=== PATIENT | female | born 1960 | race Caucasian/White ===

== ENCOUNTER 2017-04-13 18:10 | Inpatient (IN) | payer OTHER ==
[~2017-04-13] VITALS: Ht 167.6 cm; Wt 68.0 kg
[2017-04-13] MEDS ORDERED: CEPH-570 PO (18:54)
[2017-04-13] MEDS ORDERED: LISI-607 PO (18:54)
[2017-04-13] MEDS ORDERED: SULF1TAB48 PO (18:54)
--- NOTE | 2017-04-13 20:45 | NUR ---
Patient walked in to ER c/o LLE Cellulitis, patient states that she has had this problem before and is requesting ABX. To room 4B. RYANN at bedside for MSE.
[2017-04-13] MEDS ORDERED: IV NORMAL SALINE 1000 ML BAG IV ONE (21:15)
[2017-04-13] MEDS ORDERED: VANCOMYCIN IV 1,000 MG in IV DEXTROSE 5% 250 ML IV ONE (21:15)
[2017-04-13] MEDS ORDERED: PIPERACILLIN SODIUM/TAZOBACTAM 3.375 G in IV DEXTROSE 5% 50 ML IV ONE (21:15)
[2017-04-13 21:39] LABS: BASOPHILS % (AUTO) 0.5 % (0.0-2.0); EOSINOPHILS # (AUTO) 0.1 K/uL (0.0-0.7); EOSINOPHILS % (AUTO) 2.1 % (0.0-7.0); HEMATOCRIT 36.1 % (31.2-41.9); LYMPHOCYTES # (AUTO) 1.7 K/uL (20.0-40.0); LYMPHOCYTES % (AUTO) 31.4 % (20.5-51.5); MEAN CORPUSCULAR HEMOGLOBIN 29.8 uug (24.7-32.8); MEAN CORPUSCULAR HGB CONC 33 g/dL (32.3-35.6); MEAN CORPUSCULAR VOLUME 89.7 fL (75.5-95.3); MONOCYTES % (AUTO) 18.2 % (0.0-11.0); NEUTROPHILS # (AUTO) 2.5 K/uL (1.8-8.9); NEUTROPHILS % (AUTO) 47.8 % (38.5-71.5); PLATELET COUNT (AUTO) 208 K/uL (179-408); RED BLOOD CELL COUNT(AUTO) 4.02 MIL/uL (3.63-4.92); WHITE BLOOD COUNT (AUTO) 5.3 K/uL (3.8-11.8)
[2017-04-13 21:44] LABS: NEUTROPHILS % (MANUAL) 0 % (42-75)
[2017-04-13] MEDS ORDERED: PIPERACILLIN/TAZOBACTAM/D5W 50 ML IV ONE (21:46)
[2017-04-13 21:47] LABS: CREATININE 0.9 mg/dL (0.6-1.3); POTASSIUM 4.2 mmol/L (3.5-5.1)
--- NOTE | 2017-04-13 21:50 | NUR ---
Radiology at bedside for US.
[2017-04-13 22:03] LABS: BILIRUBIN,DIRECT 0.1 mg/dL (0.0-0.2); BILIRUBIN,TOTAL 0.2 mg/dL (0.2-1.0)
--- NOTE | 2017-04-13 22:06 | NUR ---
Radiology completed US, preliminary results to ERMD.
[2017-04-13] MEDS ORDERED: VANCOMYCIN IV 200 ML ONE (22:17)
--- NOTE | 2017-04-13 23:00 | NUR ---
Pt. admitted to TELE, under care of Dr. Parsons Belongs List completed
[2017-04-13 23:35] VITALS: BP 118/76
--- NOTE | 2017-04-13 23:35 | NUR ---
admitted new patient to room 216, patient alert,oriented,in no acute distress, NSR on monitor,left lower leg redness warm and edema,patient report minimal pain and no chest pain,iv vancomycin going on,patient is afebrile, cont closely monitor.
[2017-04-14] MEDS ORDERED: HYDROCODONE/APAP 5-325MG TABLET PO PRN
--- NOTE | 2017-04-14 02:05 | NUR ---
troponin < 0.017 trending down, patient slept well ,no acute distress, nsr on monitor.
[2017-04-14 04:00] VITALS: BP 115/65
[2017-04-14 06:41] LABS: BASOPHILS % (AUTO) 0.5 % (0.0-2.0); EOSINOPHILS # (AUTO) 0.2 K/uL (0.0-0.7); HEMATOCRIT 36.1 % (31.2-41.9); HEMOGLOBIN 11.8 g/dL (10.9-14.3); LYMPHOCYTES # (AUTO) 1.9 K/uL (20.0-40.0); LYMPHOCYTES % (AUTO) 36.2 % (20.5-51.5); MEAN CORPUSCULAR HEMOGLOBIN 29.7 uug (24.7-32.8); MEAN CORPUSCULAR HGB CONC 33 g/dL (32.3-35.6); MEAN CORPUSCULAR VOLUME 90.9 fL (75.5-95.3); MONOCYTES # (AUTO) 0.9 K/uL (2.0-10.0); MONOCYTES % (AUTO) 17.8 % (0.0-11.0); NEUTROPHILS # (AUTO) 2.1 K/uL (1.8-8.9); NEUTROPHILS % (AUTO) 41.5 % (38.5-71.5); PLATELET COUNT (AUTO) 182 K/uL (179-408); RED BLOOD CELL COUNT(AUTO) 3.97 MIL/uL (3.63-4.92); WHITE BLOOD COUNT (AUTO) 5.1 K/uL (3.8-11.8)
[2017-04-14 07:13] LABS: BILIRUBIN,TOTAL 0.3 mg/dL (0.2-1.0); CREATININE 0.9 mg/dL (0.6-1.3); MAGNESIUM 1.9 mg/dL (1.8-2.4); PHOSPHOROUS 3.9 mg/dL (2.5-4.9); POTASSIUM 4.6 mmol/L (3.5-5.1); TOTAL PROTEIN, SERUM 6.1 g/dL (6.4-8.2)
--- NOTE | 2017-04-14 07:45 | NUR ---
RECEIVED PATIENT AWAKE ALERT AND ORIENTED STATED THAT HER PAIN ACROSS HER UPPER BACK IS STILL PRESENT BUT REFUSED PAIN MEDICATIONS ORDERED SHE IS ON ROOM AIR WITH NO SHORTNESS OF BREATH AT THIS TIME LEFT LEG/FOOT WITH EDEMA AND MILD REDNESS ENCOURAGED TO ELEVATE ON THE PILLOW TO REDUCE SWELLING AND SHE EXPRESSED UNDERSTANDING.
[2017-04-14] MEDS: ASPIRIN 81 MG TAB.CHEW PO SCH (08:24)
[2017-04-14] MEDS: LISINOPRIL 5 MG TABLET PO SCH ×2 (08:24→21:00)
[2017-04-14 08:47] LABS: EOSINOPHILS % (MANUAL) 1 % (0-8); LYMPHOCYTES % (MANUAL) 35 % (20-40); MONOCYTES % (MANUAL) 13 % (2-10); NEUTROPHILS % (MANUAL) 51 % (42-75)
[2017-04-14 11:51] VITALS: BP 112/68
--- NOTE | 2017-04-14 12:00 | NUR ---
PHYSICAL THERAPY HERE SEEN PATIENT AND SHE AMBULATED IN THE HALLWAY WITH GOOD ENDURANCE.NOT IN DISTRESS AT THIS TIME.
[2017-04-14] MEDS: PIPERACILLIN/TAZOBACTAM/D5W 50 ML IV SCH ×3 (12:17→23:21)
[2017-04-14] MEDS: VANCOMYCIN IV 1 G in PREMIXED 0 EACH IV SCH (13:45)
--- NOTE | 2017-04-14 15:54 | NUR ---
Clinical pharmacy note-Vancomycin dosing per pharmacy S: To start Vancomycin dosing on this patient for cellulitis O: BUN 10 Scr 0.9 WBC 5.1 Temp 98.2 A/P: Patient had Vancomycin 1gram in er last night at 2229 Will continue vancomycin 1gram every 15hrs(second dose today at 1300) and draw trough by 4th dose(not ordered yet) for expected trough around 15. Will monitor daily.
[2017-04-14 16:01] VITALS: BP 117/74
--- NOTE | 2017-04-14 16:38 | NUR ---
IV SITE LEFT FOREARM INFILTERATED RESTARTED TO HER RIGHT HAND WITH ONE ATTEMPT WITH IV ANTIBIOTICS IN PROGRESS ORDERED WITH NO ADVERSE OR ALLERGIC REACTIONS AT THIS TIME.WILL CONTINUE TO OBSERVE.
--- NOTE | 2017-04-14 18:00 | NUR ---
RESTING WITH NO ADVERSE OR ALLERGIC REACTIONS AT THIS TIME.
[2017-04-14 20:50] VITALS: BP 101/69
[2017-04-14] MEDS: LACTOBACILLUS RHAMNOSUS GG 1 EACH CAPSULE PO SCH (21:01)
[2017-04-15 00:01] VITALS: BP 101/61
--- NOTE | 2017-04-15 00:16 | NUR ---
Patient has been alert, oriente x 4, calm and cooperative in pleasant mood since beginning of my shift @ 1900 with no complaints of pain, chest pain or shortness of breath. MAEW. LLE with slight swelling, non-pitting and calf is a reddened color, slightly warm to touch, non-tender - pt encouraged to elevate extremity. R hand PIV patent, saline locked, flushed easily with + blood return. Respirations even, unlabored on room air. Monitoring pt for safety/changes. Explained plan of care to pt and questions answered. Addendum: 04/15/17 at 0623 by MARTIN JARRELL RN 0600: No changes in ongoing pt assessment. Remains calm, cooperative, has slept at short intervals. Continue to monitor for changes/safety.
[2017-04-15] MEDS: VANCOMYCIN IV 1 G in PREMIXED 0 EACH IV SCH ×2 (03:22→20:29)
[2017-04-15 04:00] VITALS: BP 114/65
[2017-04-15] MEDS: PIPERACILLIN/TAZOBACTAM/D5W 50 ML IV SCH ×4 (05:41→23:42)
[2017-04-15 06:06] LABS: HEPATITIS A AB, IgM Negative (Negative); HEPATITIS B SURFACE AG Negative (Negative)
[2017-04-15] MEDS: PANTOPRAZOLE SODIUM 40 MG TABLET.DR PO SCH (06:13)
[2017-04-15 07:11] LABS: BASOPHILS % (AUTO) 0.7 % (0.0-2.0); EOSINOPHILS # (AUTO) 0.2 K/uL (0.0-0.7); EOSINOPHILS % (AUTO) 5.1 % (0.0-7.0); HEMATOCRIT 34.9 % (31.2-41.9); HEMOGLOBIN 11.7 g/dL (10.9-14.3); LYMPHOCYTES # (AUTO) 1.5 K/uL (20.0-40.0); LYMPHOCYTES % (AUTO) 36.7 % (20.5-51.5); MEAN CORPUSCULAR HEMOGLOBIN 30.3 uug (24.7-32.8); MEAN CORPUSCULAR HGB CONC 33 g/dL (32.3-35.6); MEAN CORPUSCULAR VOLUME 90.7 fL (75.5-95.3); MONOCYTES # (AUTO) 0.7 K/uL (2.0-10.0); MONOCYTES % (AUTO) 17.1 % (0.0-11.0); NEUTROPHILS # (AUTO) 1.7 K/uL (1.8-8.9); NEUTROPHILS % (AUTO) 40.4 % (38.5-71.5); PLATELET COUNT (AUTO) 182 K/uL (179-408); RED BLOOD CELL COUNT(AUTO) 3.85 MIL/uL (3.63-4.92); WHITE BLOOD COUNT (AUTO) 4.1 K/uL (3.8-11.8)
[2017-04-15 07:42] LABS: BILIRUBIN,TOTAL 0.3 mg/dL (0.2-1.0); MAGNESIUM 1.9 mg/dL (1.8-2.4); PHOSPHOROUS 4.3 mg/dL (2.5-4.9); POTASSIUM 4.3 mmol/L (3.5-5.1); TOTAL PROTEIN, SERUM 6.2 g/dL (6.4-8.2)
[2017-04-15 07:44] LABS: THYROID STIMULATING HORMONE 1.231 mIU/mL (0.358-3.740)
--- NOTE | 2017-04-15 07:44 | NUR ---
RECEIVED PATIENT AWAKE STANDING UP IN THE ROOM STATED WAS THINKING OF GOING TO THE BATHROOM PATIENT REMINDED THAT SHE NEEDED TO PROVIDE A URINE SAMPLE WAS ADVISED YESTERDAY AND A SPECIMEN CUP WAS PROVIDED BUT SHE STATED THAT SHE KEEPS FORGETTING AND STATED THAT SHE WILL ATTEMT TO PROVIDE THE SPECIMEN SOON SHE CAN.REMAIN ON IV ATB ORDERED WITH NO ADVERSE OR ALLERGIC REACTIONS AT THIS TIME ENCOURAGED TO ELEVATER HER LEFT FOOT ON PILLOWS SOON POSSIBLE TO DECREASE SWELLING AND SHE EXPRESSED UNDERSTANDING.
[2017-04-15] MEDS: LACTOBACILLUS RHAMNOSUS GG 1 EACH CAPSULE PO SCH ×2 (08:54→20:29)
[2017-04-15] MEDS: ASPIRIN 81 MG TAB.CHEW PO SCH (08:54)
[2017-04-15] MEDS: LISINOPRIL 5 MG TABLET PO SCH ×2 (08:54→20:29)
--- NOTE | 2017-04-15 11:00 | NUR ---
ORDER FOR CTA RECEIVED FROM NAYELI AND PATIENT SIGNED THE CONSCENT BUT STATED THAT A WHILE AGO SHE FELT BAD AFTER AN IV CONTRAST BUT IT WAS TEMPORARY SO NAYELI NOTIFIED AND AFTER SHE SPOKE WITH THE PATIENT SHE STATED THAT IT WAS OKAY TO GIVE THE IV CONTRAST AND DO THE TEST ORDERED.
[2017-04-15] MEDS ORDERED: IOHEXOL 350 100 ML INFUS..BTL ONE (11:36)
[2017-04-15] MEDS ORDERED: IV NORMAL SALINE 250 ML IV ONE (11:36)
[2017-04-15 11:49] VITALS: BP 101/66
[2017-04-15 12:23] LABS: *BILIRUBIN,URIN NEGATIVE (NEGATIVE); *BLOOD, URINE NEGATIVE (NEGATIVE); *CLARITY,URINE CLEAR (CLEAR); *COLOR,URINE LIGHT YELLOW (YELLOW); *KETONES,URINE NEGATIVE (NEGATIVE); *PROTEIN,URINE NEGATIVE (NEGATIVE); *UROBILINOGEN,URINE 0.2 E.U./dl (NORMAL); LEUKOCYTE ESTERASE ,URINE NEGATIVE (NEGATIVE); NITRITE, URINE NEGATIVE (NEGATIVE); UGLUCOSE NEGATIVE (NEGATIVE)
[2017-04-15 12:27] LABS: EOSINOPHILS % (MANUAL) 5 % (0-8); LYMPHOCYTES % (MANUAL) 36 % (20-40); MONOCYTES % (MANUAL) 16 % (2-10); NEUTROPHILS % (MANUAL) 43 % (42-75)
[2017-04-15 12:48] LABS: BACTERIA,URINE NONE SEEN /HPF (NONE SEEN); RBC,URINE NONE SEEN /HPF (0-3); SQUAMOUS EPITHELIAL CELL,UR FEW /HPF (NONE SEEN); WBC,URINE 0-3 /HPF (0-3)
[2017-04-15] MEDS ORDERED: FLUTICASONE/SALMETEROL 250/50 INHALER INH SCH (13:45)
[2017-04-15] MEDS ORDERED: ALBUTEROL SULFATE 2.5 MG/ 0.5 ML NEBU NEB PRN (13:45)
[2017-04-15] MEDS ORDERED: IPRATROPIUM BROMIDE 0.5 MG/2.5 ML NEBU NEB PRN (13:45)
--- NOTE | 2017-04-15 14:56 | NUR ---
Clinical pharmacy note-Vancomycin dosing per pharmacy S: To continue Vancomycin dosing on this patient for cellulitis O: BUN 15 Scr 1.0 WBC 4.1 Temp 98 trough: pending today at 1830 A/P: Will continue vancomycin 1gram every 15hrs with trough due later marcdat at 1830. Will check trough then and adjust as needed. Will continue to follow Addendum: 04/15/17 at 1933 by OLIVIER GRAHAM ADM TROUGH @ 18:30 CAME BACK @ 10.9 WILL CHANGE THE REGIMEN TO VANCOMYCIN 1 GM Q12H ESTIMATED PEAK OF 34 AND TROUGH OF 15.2. TONBEAU'S DOSE (1ST DOSE) WILL RE-ORDER TROUGH PRIOR TO 4TH DOSE AND WILL FOLLOW MONITORING RENAL FUNCTION.
--- NOTE | 2017-04-15 15:00 | NUR ---
CTA ANGIO COMPLETED ORDERED AND RESULT REVIEWED BY THE APPAREL CUTTER WITH NEW ORDERS AND NOTED.
[2017-04-15] MEDS: FLUTICASONE/VILANTEROL 1 EACH BLST.W.DEV INH SCH (15:11)
[2017-04-15 15:38] VITALS: BP 108/73
--- NOTE | 2017-04-15 18:32 | NUR ---
AWAITING FOR VANCO TROUGH ORDERED PATIENT AWARE.
[2017-04-15 19:00] VITALS: BP 101/70
[2017-04-15] MEDS: ALBUTEROL SULFATE 2.5 MG/ 0.5 ML NEBU NEB SCH (19:39)
[2017-04-15] MEDS: IPRATROPIUM BROMIDE 0.5 MG/2.5 ML NEBU NEB SCH (19:39)
[2017-04-16] MEDS: PIPERACILLIN/TAZOBACTAM/D5W 50 ML IV SCH ×2 (05:05→12:26)
[2017-04-16 05:28] VITALS: BP 113/63
[2017-04-16] MEDS: PANTOPRAZOLE SODIUM 40 MG TABLET.DR PO SCH (05:57)
[2017-04-16] MEDS: IPRATROPIUM BROMIDE 0.5 MG/2.5 ML NEBU NEB SCH ×2 (07:35→13:30)
[2017-04-16] MEDS: ALBUTEROL SULFATE 2.5 MG/ 0.5 ML NEBU NEB SCH ×2 (07:35→13:30)
[2017-04-16 08:19] LABS: BASOPHILS % (AUTO) 0.3 % (0.0-2.0); EOSINOPHILS # (AUTO) 0.1 K/uL (0.0-0.7); EOSINOPHILS % (AUTO) 2.8 % (0.0-7.0); HEMOGLOBIN 12.2 g/dL (10.9-14.3); LYMPHOCYTES # (AUTO) 0.5 K/uL (20.0-40.0); LYMPHOCYTES % (AUTO) 12.8 % (20.5-51.5); MEAN CORPUSCULAR HEMOGLOBIN 29.7 uug (24.7-32.8); MEAN CORPUSCULAR HGB CONC 33 g/dL (32.3-35.6); MEAN CORPUSCULAR VOLUME 90.2 fL (75.5-95.3); MONOCYTES # (AUTO) 0.6 K/uL (2.0-10.0); MONOCYTES % (AUTO) 17.1 % (0.0-11.0); NEUTROPHILS # (AUTO) 2.5 K/uL (1.8-8.9); PLATELET COUNT (AUTO) 175 K/uL (179-408); WHITE BLOOD COUNT (AUTO) 3.7 K/uL (3.8-11.8)
[2017-04-16] MEDS: FLUTICASONE/VILANTEROL 1 EACH BLST.W.DEV INH SCH (09:00)
[2017-04-16 09:26] LABS: BILIRUBIN,TOTAL 0.3 mg/dL (0.2-1.0); CREATININE 1.1 mg/dL (0.6-1.3); MAGNESIUM 1.7 mg/dL (1.8-2.4); PHOSPHOROUS 3.7 mg/dL (2.5-4.9); POTASSIUM 4.6 mmol/L (3.5-5.1); TOTAL PROTEIN, SERUM 6.4 g/dL (6.4-8.2)
[2017-04-16] MEDS: VANCOMYCIN IV 1 G in PREMIXED 0 EACH IV SCH (09:40)
[2017-04-16] MEDS: LISINOPRIL 5 MG TABLET PO SCH (09:40)
[2017-04-16] MEDS: ASPIRIN 81 MG TAB.CHEW PO SCH (09:40)
[2017-04-16] MEDS: LACTOBACILLUS RHAMNOSUS GG 1 EACH CAPSULE PO SCH (09:41)
[2017-04-16 09:51] LABS: BAND % (MANUAL) 2 % (0-10); EOSINOPHILS % (MANUAL) 3 % (0-8); LYMPHOCYTES % (MANUAL) 16 % (20-40); MONOCYTES % (MANUAL) 16 % (2-10); NEUTROPHILS % (MANUAL) 63 % (42-75)
[2017-04-16] MEDS ORDERED: MAGNESIUM SULFATE/D5W 100 ML IV SCH (10:45)
[2017-04-16] MEDS ORDERED: GUAIFENESIN/DEXTROMETHORPHAN 5 ML UDC PO PRN (11:30)
[2017-04-16 11:38] VITALS: BP 114/61
--- NOTE | 2017-04-16 14:02 | NUR ---
Clinical pharmacy note-Vancomycin dosing per pharmacy S: To continue Vancomycin dosing on this 56 yo female patient for cellulitis O: ht: 66'' wt: 150 lb BUN 15 Scr 1.0 WBC 3.7 Temp 98 A/P: Will continue same dose of vancomycin 1gram IVPB every 12hrs for today. Third dose is due today at 2000. Plan to drarw vanco trough level tomorrow at 0730. Will check trough then and adjust as needed. Will continue to follow
[2017-04-16] MEDS ORDERED: DOXYCYCLINE HYCLATE 100 MG TABLET PO SCH (15:00)
[2017-04-16] MEDS ORDERED: FLUT1BLS INH (15:08)
[2017-04-16] MEDS ORDERED: GUAI5SYR PO (15:08)
[2017-04-16] MEDS ORDERED: HYDR-3326 PO (15:08)
[2017-04-16] MEDS ORDERED: LACT1CAP57 PO (15:08)
[2017-04-16] MEDS ORDERED: DOXY100T2 PO (15:08)
[2017-04-16 16:12] VITALS: BP 103/67
--- NOTE | 2017-04-16 17:45 | NUR ---
PT DISCHARGED WITH EXIT CARE PLAN, ALL BELONGINGS AND VALUABLES AND PRESCRIPTIONS. PT IS CALM, COOPERATIVE EAGER TO LEAVE AND AGREED TO FOLLOW UP WITH PRIMARY DOCTOR IN REGARDS TO DOXYCYCLINE. PT WENT HOME WITH AND WILL BE TAKEN CARE OF BY .
== END 2017-04-16 17:45 | disposition home or self-care (01) | DRG 383 ==
LOC: ER 18:22 → TELE 22:52 → MED 04-15 17:39
PROVIDERS: ADMIT Nurse Practitioner Acute Care; ATTEND Internal Medicine
DX: L03.116 Cellulitis of left lower limb (principal); I21.A1 Myocardial infarction type 2; E43 Unspecified severe protein-calorie malnutrition; D69.6 Thrombocytopenia, unspecified; J84.9 Interstitial pulmonary disease, unspecified; I83.12 Varicose veins of left lower extremity with inflammation; Z86.14 Personal history of Methicillin resistant Staphylococcus aureus infection; Z68.24 Body mass index [BMI] 24.0-24.9, adult; I83.893 Varicose veins of bilateral lower extremities with other complications; F17.211 Nicotine dependence, cigarettes, in remission; K44.9 Diaphragmatic hernia without obstruction or gangrene; J43.2 Centrilobular emphysema; M54.10 Radiculopathy, site unspecified; M41.84 Other forms of scoliosis, thoracic region; D72.819 Decreased white blood cell count, unspecified; B19.20 Unspecified viral hepatitis C without hepatic coma; I10 Essential (primary) hypertension; Z79.899 Other long term (current) drug therapy; M25.511 Pain in right shoulder; M25.512 Pain in left shoulder
CPT/HCPCS: 36415; 70030-TC; 71010; 71275; 83605; 83735; 84100; 84443; 85025; 85651; 85730; 86705; 86709; 86803; 87040; 87086; 87340; 93005; 93307; 94664; A4663; J2543; J3370; J3475; J3590; J7030; J7040; J7050; Q9967